=== PATIENT | female | born 1980 | race African-American/Black ===

== ENCOUNTER 2017-12-22 13:45 | Inpatient (IN) | payer SELFPAY ==
[~2017-12-22] VITALS: Ht 167.6 cm; Wt 95.6 kg
[2017-12-22 13:30] VITALS: BP 154/68; PULSE 80; RESP 18; TEMP 98.1; O2SAT 98
[2017-12-22] MEDS ORDERED: SODIUM CHLOR 0.9% 1000 ML INJ 1,000 ML IV SCH (14:14)
[2017-12-22] MEDS ORDERED: NALOXONE HCL 0.4 MG/ML AMP IV PUSH PRN (14:15)
[2017-12-22] MEDS ORDERED: MORPHINE SULFATE 2 MG/ML INJ IM PRN (14:15)
[2017-12-22] MEDS ORDERED: MAGNESIUM HYDROXIDE SUSP 30 ML CUP PO PRN (14:15)
[2017-12-22] MEDS: SODIUM CHLOR 0.9% 1000 ML INJ 1,000 ML IV SCH ×2 (14:15→23:42)
[2017-12-22] MEDS ORDERED: ACETAMINOPHEN 325 MG TAB PO PRN (14:15)
[2017-12-22] MEDS ORDERED: SENNOSIDES 8.6 MG TAB PO PRN (14:15)
[2017-12-22] MEDS ORDERED: LACTULOSE SYRUP 20 GM/30 ML CUP PO PRN (14:15)
[2017-12-22] MEDS ORDERED: ONDANSETRON HCL 4 MG/2 ML VIAL IVP PRN (14:15)
[2017-12-22] MEDS ORDERED: BISACODYL 10 MG SUPP RECTAL PRN (14:15)
--- NOTE | 2017-12-22 14:22 | HHI.HP ---
[facility] No Primary Care Physician Admission Diagnosis Diagnoses: Chief Complaint: Odynophagia Travel History International Travel<30 Days: No Contact w/Intl Traveler <30 Da: No Traveled to Known Affected Are: No Sepsis Criteria SIRS Criteria (2 or more): Heart rate over 90, WBC > 21621, < 4000 or > 10% bands Criteria Outcome: Meets sepsis criteria History of Present Illness The patient is a 37-year-old female the past medical history came here from [facility] for further evaluation of peritonsillar abscess. The patient has pain with swallowing and she says she also developed fevers and chills prior to admission. She was incarcerated last year and says HIV was negative. She is not concerned for HIV infection at this time and does not want to be tested. Patient is a poor historian as well. Denies fever just this time. Received Toradol IV antibiotics and Decadron in the emergency room and she feels much better. Since she will like to eat regular food she does not have any pain at this time. No nausea vomiting no diarrhea or constipation. Febrile tachycardia. She is breathing well, saturating well on room air at this time. Review of Systems ROS Limitations: Clinical Condition, Poor Historian Past Family Social History Past Medical History Denies past medical history Past Surgical History D&C Allergies: Coded Allergies: No Known Allergies (Unverified , 12/22/17) Family History Mother with diabetes and hypertension Social History Tobacco use 1 pack every 2-1/2 days Denies alcohol abuse or illicit drug use Physical Exam Vital Signs Vital Signs Date Time Temp Pulse Resp B/P (MAP) Pulse Ox O2 Delivery O2 Flow Rate FiO2 12/22/17 13:30 98.1 80 18 154/68 (96) 98 Physical Exam GENERAL: This is a pleasant 37-year-old female well-nourished, well-developed patient, in no apparent distress. SKIN: No rashes, ecchymoses or lesions. Cool and dry. HEAD: Atraumatic. Normocephalic. No temporal or scalp tenderness. EYES: Pupils equal round and reactive. Extraocular motions intact. No scleral icterus. No injection or drainage. ENT: Nose without bleeding, purulent drainage or septal hematoma. Throat unable to visualize all this patient is with some discomfort. Airway patent. NECK: Trachea midline. No JVD or lymphadenopathy. Supple, nontender, no meningeal signs. CARDIOVASCULAR: Regular rate and rhythm without murmurs, gallops, or rubs. RESPIRATORY: Clear to auscultation. Breath sounds equal bilaterally. No wheezes , rales, or rhonchi. GASTROINTESTINAL: Abdomen soft, non-tender, nondistended. No hepato-splenomegaly , or palpable masses. No guarding. MUSCULOSKELETAL: Extremities without clubbing, cyanosis, or edema. No joint tenderness, effusion, or edema noted. No calf tenderness. Negative Homans sign bilaterally. NEUROLOGICAL: Awake and alert. Cranial nerves II through XII intact. Motor and sensory grossly within normal limits. Five out of 5 muscle strength in all muscle groups. Normal speech. Caprini VTE Risk Assessment Caprini VTE Risk Assessment: Mod/High Risk (score >= 2) Caprini Risk Assessment Model Point Value = 1 Point Value = 2 Point Value = 3 Point Value = 5 Age 41-60 Minor surgery BMI > 25 kg/m2 Swollen legs Varicose veins or History of unexplained or recurrent spontaneous Oral contraceptives or hormone replacement Sepsis (< 1 month) Serious lung disease, including pneumonia (< 1 month) Abnormal pulmonary function Acute myocardial infarction Congestive heart failure (< 1 month) History of inflammatory bowel disease Medical patient at bed rest Age 61-74 Arthroscopic surgery Major open surgery (> 45 min) Laparoscopic surgery (> 45 min) Malignancy Confined to bed (> 72 hours) Immobilizing plaster cast Central venous access Age >= 75 History of VTE Family history of VTE Factor V Leiden Prothrombin [id number] Lupus anticoagulant Anticardiolipin antibodies Elevated serum homocysteine Heparin-induced thrombocytopenia Other congenital or acquired thrombophilia Stroke (< 1 month) Elective arthroplasty Hip, pelvis, or leg fracture Acute spinal cord injury (< 1 month) Prophylaxis Regimen Total Risk Factor Score Risk Level Prophylaxis Regimen 0-1 Low Early ambulation 2 Moderate Order ONE of the following: *Sequential Compression Device (SCD) *Heparin 5000 units SQ BID 3-4 Higher Order ONE of the following medications: *Heparin 5000 units SQ TID *Enoxaparin/Lovenox 40 mg SQ daily (WT < 150 kg, CrCl > 30 mL/min) *Enoxaparin/Lovenox 30 mg SQ daily (WT < 150 kg, CrCl > 10-29 mL/min) *Enoxaparin/Lovenox 30 mg SQ BID (WT < 150 kg, CrCl > 30 mL/min) AND/OR *Sequential Compression Device (SCD) 5 or more Highest Order ONE of the following medications: *Heparin 5000 units SQ TID (Preferred with Epidurals) *Enoxaparin/Lovenox 40 mg SQ daily (WT < 150 kg, CrCl > 30 mL/min) *Enoxaparin/Lovenox 30 mg SQ daily (WT < 150 kg, CrCl > 10-29 mL/min) *Enoxaparin/Lovenox 30 mg SQ BID (WT < 150 kg, CrCl > 30 mL/min) AND *Sequential Compression Device (SCD) Assessment and Plan Assessment and Plan Severe tonsillitis, right tonsillar abscess. Sepsis meeting criteria white blood cell 14.1, tachycardic heart rate more than 90 on admission source of infection tonsillitis and right tonsillar abscess Bilateral cervical adenopathy Thyromegaly per CT imaging Blood cultures IV fluids IV antibiotic Cleocin IV, Rocephin IV Start Decadron Toradol IV for pain, morphine IV for breakthrough Check TSH Consult ENT Dr. Freire Monitor CBC, kidney function Clear liquid diet for today, n.p.o. after midnight will be reevaluated by Dr. Freire ENT tomorrow for possible intervention DVT prophylaxis SCDs/teds/Lovenox Discussed Condition With Patient, nurse, Dr. Finnegan, Dr. Freire ENT doctor Physician Certification 2 Midnight Certification Type: Admission for Inpatient Services Order for Inpatient Services The services are ordered in accordance with Medicare regulations or non- Medicare payer requirements, as applicable. In the case of services not specified as inpatient-only, they are appropriately provided as inpatient services in accordance with the 2-midnight benchmark. Estimated LOS (days): 3 days is the estimated time the patient will need to remain in the hospital, assuming treatment plan goals are met and no additional complications. Post-Hospital Plan: Home Courtney Hernández MD Dec 22, 2017 14:22
[2017-12-22] MEDS: ENOXAPARIN SODIUM 40 MG/0.4 ML SYRINGE SQ SCH (15:51)
[2017-12-22] MEDS: CLINDAMYCIN INJ 900 MG in SODIUM CHLORIDE 0.9% INJ 100 ML IV SCH ×2 (15:51→21:59)
[2017-12-22 16:00] VITALS: BP 143/67; PULSE 76; RESP 18; TEMP 97.8; O2SAT 98
[2017-12-22 16:42] LABS: AUTOMATED NEUTROPHIL # 12.7 TH/MM3 (1.8-7.7); HEMOGLOBIN 12.1 GM/DL (11.6-15.3); LYMPH % 8.1 % (9.0-44.0); LYMPHOCYTE # 1.1 TH/MM3 (1.0-4.8); MEAN CELL VOLUME 71.5 FL (80.0-100.0); MEAN CORPUSCULAR HGB CONC 33.5 % (32.0-36.0); MEAN PLATELET VOLUME 8.6 FL (7.0-11.0); MONO % 1.2 % (0.0-8.0); MONOCYTE # 0.2 TH/MM3 (0-0.9); NEUT % 90.7 % (16.0-70.0); PLATELET COUNT 257 TH/MM3 (150-450); RED BLOOD COUNT 5.04 MIL/MM3 (4.00-5.30); RED CELL DISTRIBUTION WIDTH 14.7 % (11.6-17.2)
[2017-12-22 17:11] LABS: BICARBONATE 23.9 MEQ/L (21.0-32.0); CALCIUM 8.8 MG/DL (8.5-10.1); CREATININE 0.36 MG/DL (0.50-1.00)
[2017-12-22] MEDS ORDERED: DEXAMETHASONE SOD PHOS 4 MG/ML VIAL IV PUSH SCH (18:00)
[2017-12-22] MEDS: DEXAMETHASONE SOD PHOS 20 MG/5 ML VIAL IV PUSH SCH ×2 (18:27→23:41)
[2017-12-22] MEDS: KETOROLAC TROMETHAMINE 60 MG/2 ML (IM) VIAL IM SCH ×2 (18:28→23:40)
[2017-12-22 20:42] VITALS: BP 141/64; PULSE 74; RESP 16; TEMP 98.4; O2SAT 97
[2017-12-22] MEDS: SODIUM CHLORIDE 0.9% FLUSH 10 ML FLUSH IV FLUSH SCH (21:00)
[2017-12-22] MEDS: DOCUSATE SODIUM 50 MG/SENNA 8.6 MG TAB PO SCH (21:07)
[2017-12-22] MEDS: SODIUM CHLORIDE 0.9% FLUSH 10 ML FLUSH IV FLUSH PRN (23:42)
[2017-12-23] VITALS (11 sets, daily range): BP systolic 143–162; BP diastolic 66–92; PULSE 60–80; RESP 18–20; TEMP 97.8–98.7; O2SAT 18–100
[2017-12-23] MEDS: CLINDAMYCIN INJ 900 MG in SODIUM CHLORIDE 0.9% INJ 100 ML IV SCH ×4 (05:08→21:39)
[2017-12-23] MEDS: SODIUM CHLORIDE 0.9% FLUSH 10 ML FLUSH IV FLUSH PRN (05:17)
[2017-12-23] MEDS: DEXAMETHASONE SOD PHOS 20 MG/5 ML VIAL IV PUSH SCH ×3 (05:17→17:35)
[2017-12-23] MEDS: KETOROLAC TROMETHAMINE 60 MG/2 ML (IM) VIAL IM SCH (05:22)
[2017-12-23] MEDS: DOCUSATE SODIUM 50 MG/SENNA 8.6 MG TAB PO SCH ×2 (08:44→21:00)
[2017-12-23] MEDS: SODIUM CHLORIDE 0.9% FLUSH 10 ML FLUSH IV FLUSH SCH ×2 (08:48→21:00)
[2017-12-23 09:19] LABS: AUTOMATED NEUTROPHIL # 11.1 TH/MM3 (1.8-7.7); BASOPHIL % 0.1 % (0.0-2.0); HEMATOCRIT 35.8 % (35.0-46.0); HEMOGLOBIN 11.6 GM/DL (11.6-15.3); LYMPHOCYTE # 1.6 TH/MM3 (1.0-4.8); MEAN CELL VOLUME 72.4 FL (80.0-100.0); MEAN CORPUSCULAR HEMOGLOBIN 23.4 PG (27.0-34.0); MEAN CORPUSCULAR HGB CONC 32.3 % (32.0-36.0); MEAN PLATELET VOLUME 8.8 FL (7.0-11.0); MONOCYTE # 0.4 TH/MM3 (0-0.9); NEUT % 84.9 % (16.0-70.0); PLATELET COUNT 247 TH/MM3 (150-450); RED BLOOD COUNT 4.94 MIL/MM3 (4.00-5.30); RED CELL DISTRIBUTION WIDTH 14.9 % (11.6-17.2)
[2017-12-23 09:38] LABS: BICARBONATE 23.8 MEQ/L (21.0-32.0); CREATININE 0.35 MG/DL (0.50-1.00)
[2017-12-23] MEDS ORDERED: ACETAMINOPHEN 325 MG TAB PO PRN (12:30)
--- NOTE | 2017-12-23 13:13 | MB ---
cc: Rufus Freire MD DATE OF CONSULT: CHIEF COMPLAINT: Peritonsillar abscess. HISTORY: Patient is a pleasant female with a recent history of right peritonsillar abscess. She notes that a year ago, she had a similar infection. It has significantly improved over the last 24 hours since she was transferred to our hospital yesterday afternoon. She is on clindamycin and steroids. She is tolerating p.o. currently. On examination, patient has mild cervical lymphadenopathy. She has very swollen tonsils, right worse than left, with erythema and exudate. She also has right peritonsillar fullness. She notes that this is better than it was yesterday of note. Flexible fiberoptic laryngoscopy revealed a patent airway, but it was slightly narrowed with the swollen tonsils and soft tissue. Thus, ASSESSMENT: Peritonsillar abscess, resolving. Because of the extent of the infection currently that I note today on evaluation, patient would benefit for at least another 24 hours of IV antibiotics with steroids. I recommend patient stay until tomorrow evening prior to discharge to continue antibiotics with steroids and to go home on oral antibiotic of clindamycin since that is what she is on right now for 2 full weeks. Without 2 full weeks of clindamycin upon discharge, she will have increased risk of a possibly bounce back for repeat visit. Patient can follow up with ear, nose and throat as needed. Rufus Freire MD PCC/LK , 12:46 PM , 01:11 PM [facility]
[2017-12-23] MEDS: SODIUM CHLOR 0.9% 1000 ML INJ 1,000 ML IV SCH (15:24)
[2017-12-23] MEDS: ENOXAPARIN SODIUM 40 MG/0.4 ML SYRINGE SQ SCH (16:00)
--- NOTE | 2017-12-23 17:37 | HHI.PR ---
Subjective Remarks Was seen earlier today. Patient is in bed she appears to not acute distress. Says she wants to eat and she does not have any pain in her throat at this time. No fever or chills overnight. Was seen by ENT Dr. Freire he recommends keeping the patient 1 more day for IV antibiotics can be discharged tomorrow if improved. She also can eat regular food. If she tolerates Objective Vitals Vital Signs Date Time Temp Pulse Resp B/P (MAP) Pulse Ox O2 Delivery O2 Flow Rate FiO2 12/23/17 12:02 98.2 76 18 160/68 (98) 99 12/23/17 08:02 98.3 74 18 162/70 (100) 99 12/23/17 08:00 71 12/23/17 04:00 97.8 78 20 153/92 (112) 97 12/23/17 03:52 67 12/23/17 02:20 60 12/23/17 00:00 97.8 71 20 149/70 (96) 100 12/22/17 20:42 98.4 74 16 141/64 (89) 97 I/O 12/22/17 12/22/17 12/22/17 12/23/17 12/23/17 12/23/17 07:00 15:00 23:00 07:00 15:00 23:00 Intake Total 1052 ml 0 ml 106 ml Balance 1052 ml 0 ml 106 ml Intake Oral 0 ml IV Total 1052 ml 106 ml # Voids 2 Result Diagram: 12/23/17 0640 12/23/17 0640 Objective Remarks GENERAL: This is a pleasant 37-year-old female well-nourished, well-developed patient, in no apparent distress. NECK: Trachea midline. No JVD or lymphadenopathy. Supple, nontender, no meningeal signs. CARDIOVASCULAR: Regular rate and rhythm without murmurs, gallops, or rubs. RESPIRATORY: Clear to auscultation. Breath sounds equal bilaterally. No wheezes , rales, or rhonchi. GASTROINTESTINAL: Abdomen soft, non-tender, nondistended. No hepato-splenomegaly , or palpable masses. No guarding. MUSCULOSKELETAL: Extremities without clubbing, cyanosis, or edema. No joint tenderness, effusion, or edema noted. No calf tenderness. Negative Homans sign bilaterally. NEUROLOGICAL: Awake and alert. Cranial nerves II through XII intact. Motor and sensory grossly within normal limits. Five out of 5 muscle strength in all muscle groups. Normal speech. A/P Assessment and Plan Severe tonsillitis, right tonsillar abscess. Sepsis meeting criteria white blood cell 14.1, tachycardic heart rate more than 90 on admission source of infection tonsillitis and right tonsillar abscess Bilateral cervical adenopathy Thyromegaly per CT imaging Blood cultures IV fluids IV antibiotic Cleocin IV, Rocephin IV Start Decadron Toradol IV for pain, morphine IV for breakthrough Check TSH Consult ENT Dr. Freire Monitor CBC, kidney function Was seen by ENT Dr. Freire he recommends keeping the patient 1 more day for IV antibiotics can be discharged tomorrow if improved. She also can eat regular food. DVT prophylaxis SCDs/teds/Lovenox Discussed Condition With Patient, nurse DC plan: poss DC tomorrow Was seen by ENT Dr. Freire he recommends keeping the patient 1 more day for IV antibiotics can be discharged tomorrow if improved. Courtney Hernández MD Dec 23, 2017 17:37
[2017-12-23] MEDS: KETOROLAC TROMETHAMINE 30 MG/ML (IVP) VIAL IV PUSH PRN (21:40)
[2017-12-24] VITALS (9 sets, daily range): BP systolic 155–163; BP diastolic 58–87; PULSE 51–82; RESP 17–18; TEMP 97–97.9; O2SAT 97–100
[2017-12-24] MEDS: CLINDAMYCIN INJ 900 MG in SODIUM CHLORIDE 0.9% INJ 100 ML IV SCH ×3 (03:54→16:21)
[2017-12-24] MEDS: KETOROLAC TROMETHAMINE 30 MG/ML (IVP) VIAL IV PUSH PRN (03:54)
[2017-12-24] MEDS: DEXAMETHASONE SOD PHOS 20 MG/5 ML VIAL IV PUSH SCH ×3 (06:10→12:41)
[2017-12-24] MEDS: SODIUM CHLOR 0.9% 1000 ML INJ 1,000 ML IV SCH ×2 (06:10→13:55)
[2017-12-24 07:16] LABS: BICARBONATE 22.2 MEQ/L (21.0-32.0); CALCIUM 9.1 MG/DL (8.5-10.1); CREATININE 0.37 MG/DL (0.50-1.00)
[2017-12-24 07:27] LABS: AUTOMATED NEUTROPHIL # 12.9 TH/MM3 (1.8-7.7); BASOPHIL % 0.1 % (0.0-2.0); HEMATOCRIT 34.3 % (35.0-46.0); HEMOGLOBIN 11.4 GM/DL (11.6-15.3); LYMPH % 12.4 % (9.0-44.0); LYMPHOCYTE # 1.9 TH/MM3 (1.0-4.8); MEAN CELL VOLUME 71.8 FL (80.0-100.0); MEAN CORPUSCULAR HEMOGLOBIN 23.9 PG (27.0-34.0); MEAN CORPUSCULAR HGB CONC 33.3 % (32.0-36.0); MEAN PLATELET VOLUME 8.9 FL (7.0-11.0); MONO % 3.2 % (0.0-8.0); MONOCYTE # 0.5 TH/MM3 (0-0.9); NEUT % 84.3 % (16.0-70.0); PLATELET COUNT 247 TH/MM3 (150-450); RED BLOOD COUNT 4.78 MIL/MM3 (4.00-5.30); RED CELL DISTRIBUTION WIDTH 14.8 % (11.6-17.2); WHITE BLOOD COUNT 15.2 TH/MM3 (4.0-11.0)
[2017-12-24] MEDS: DOCUSATE SODIUM 50 MG/SENNA 8.6 MG TAB PO SCH (09:00)
[2017-12-24] MEDS: SODIUM CHLORIDE 0.9% FLUSH 10 ML FLUSH IV FLUSH SCH (09:13)
[2017-12-24] MEDS ORDERED: CLIN300C5 PO (11:18)
[2017-12-24] MEDS ORDERED: PRED20 PO (11:18)
--- NOTE | 2017-12-24 13:46 | HHI.PR ---
Subjective Remarks Pt feeling a lot better. Able to eat. No trouble breathing. Pain well controlled. would like to go home today Objective Vitals Vital Signs Date Time Temp Pulse Resp B/P (MAP) Pulse Ox O2 Delivery O2 Flow Rate FiO2 12/24/17 12:00 97.9 67 18 155/77 (103) 100 12/24/17 08:07 51 12/24/17 08:00 Room Air 12/24/17 08:00 97.8 65 17 157/87 (110) 100 12/24/17 04:00 Room Air 12/24/17 04:00 97.8 53 18 157/74 (101) 99 12/24/17 04:00 53 12/24/17 00:00 Room Air 12/24/17 00:00 97.0 58 18 163/77 (105) 97 12/24/17 00:00 82 12/23/17 20:33 Room Air 12/23/17 20:33 98.7 68 148/70 (96) 96 12/23/17 20:00 67 12/23/17 16:02 98.1 80 18 143/66 (91) 18 12/23/17 16:00 70 I/O 12/23/17 12/23/17 12/23/17 12/24/17 12/24/17 12/24/17 07:00 15:00 23:00 07:00 15:00 23:00 Intake Total 0 ml 106 ml 2356 ml 1944 ml 106 ml Balance 0 ml 106 ml 2356 ml 1944 ml 106 ml Intake Oral 0 ml 280 ml 990 ml IV Total 106 ml 2076 ml 954 ml 106 ml # Voids 2 4 3 # Bowel Movements 1 1 Result Diagram: 12/24/17 0540 12/24/17 0540 Objective Remarks GENERAL: AA walking in her room NECK: Trachea midline. CARDIOVASCULAR: Regular rate and rhythm without murmurs, RESPIRATORY: Clear to auscultation. Breath sounds equal bilaterally. No wheezes GASTROINTESTINAL: Abdomen soft, non-tender, nondistended. MUSCULOSKELETAL: Extremities without edema. NEUROLOGICAL: Awake and alert. Motor and sensory grossly within normal limits. A/P Assessment and Plan Severe tonsillitis, right tonsillar abscess. Sepsis meeting criteria white blood cell 14.1, tachycardic heart rate more than 90 on admission source of infection tonsillitis and right tonsillar abscess Bilateral cervical adenopathy Thyromegaly per CT imaging Blood cultures neg x 2 days Pt feeling a lot better. Will complete 48 hours of IV clinda and ok to d/c this evening after dose of clindamycin. I have placed script for clinda po for a total of 14 days per ENT recs. Pt to also get script for prednisone taper as well. script for tramadol as prn f/u w ENT Dr. Freire as needed Pt tolerated a diet. she feels comfortable w plan d/c home today f/u w PCP in 1-2 weeks and ENT as needed condition stable Discharge Planning d/c today after dose of clindamycin IV Zhanna Christy MD Dec 24, 2017 13:46
[2017-12-24] MEDS ORDERED: TRAM50TA PO (14:17)
[2017-12-24] MEDS: ENOXAPARIN SODIUM 40 MG/0.4 ML SYRINGE SQ SCH (16:21)
[2017-12-24] MEDS ORDERED: AMLO5TAB2 PO (16:39)
[2017-12-24] MEDS ORDERED: amLODIPine BESYLATE 5 MG TAB PO ONE (16:45)
[2017-12-25] MEDS ORDERED: amLODIPine BESYLATE 5 MG TAB PO SCH (09:00)
== END 2017-12-24 18:09 | disposition home or self-care (01) | DRG 872 ==
LOC: N04B 13:45 → OBSVTOIN 14:27
PROVIDERS: ADMIT Hospitalist; ATTEND Hospitalist
DX: A41.9 Sepsis, unspecified organism (principal); J36 Peritonsillar abscess; R59.0 Localized enlarged lymph nodes; Z72.0 Tobacco use
CPT/HCPCS: 80048; 83605; 84443; 85025; 87040; J1100; J1650; J1885; J7030

== ENCOUNTER 2018-02-06 20:37 | Inpatient (IN) | payer OTHER ==
[~2018-02-06] VITALS: Ht 170.2 cm; Wt 76.9 kg
[~2018-02-06 20:37] MED LIST: AMLO5TAB2 PO; CLIN300C5 PO; PRED20 PO; TRAM50TA PO
[2018-02-06] MEDS ORDERED: CHLORHEXIDINE GLUCONATE 2 % 1 PACK (2 CLOTHS) TOP PRN (23:45)
[2018-02-06] MEDS ORDERED: MAGNESIUM HYDROXIDE SUSP 30 ML CUP PO PRN (23:45)
[2018-02-06] MEDS ORDERED: SENNOSIDES 8.6 MG TAB PO PRN (23:45)
[2018-02-06] MEDS ORDERED: MISCELLANEOUS NURSING INFORMATION XX SCH (23:45)
[2018-02-06] MEDS ORDERED: RESP: ALBUTEROL 2.5 MG/IPRATROPIUM 0.5 MG NEB (PRN) INH (23:45)
[2018-02-06] MEDS ORDERED: LABETALOL HCL 100 MG/20 ML VIAL IV PUSH PRN (23:45)
[2018-02-06] MEDS ORDERED: SODIUM CHLORIDE 0.9% FLUSH 10 ML FLUSH IV FLUSH PRN (23:45)
[2018-02-06] MEDS ORDERED: BISACODYL 10 MG SUPP RECTAL PRN (23:45)
[2018-02-06] MEDS ORDERED: ONDANSETRON HCL 4 MG/2 ML VIAL IV PUSH PRN (23:45)
--- NOTE | 2018-02-06 23:57 | HHI.HP ---
HPI Service Critical Care Medicine Primary Care Physician Unknown Admission Diagnosis Diagnosis: Chief Complaint: Left-sided throat pain with difficulty swallowing Travel History International Travel<30 Days: No Contact w/Intl Traveler <30 Da: No History of Present Illness History of Present Illness 37-year-old female who was recently admitted on 12/22/2017 for left peritonsillar abscess and discharged on 12/27 after being evaluated by ENT. Reportedly patient did not wish to have surgery at that time. She was discharged on steroids and clindamycin. She presented back to [facility] today with increasing pain on the left side of her throat with nausea vomiting along with chills which she noticed this morning. She has also been having trouble with her swallowing. Patient underwent CT of the neck which showed a left sided peritonsillar abscess measuring 1.5 x 1.5 x 1.7 cm with tonsillar hypertrophy consistent with tonsillitis/pharyngitis. Patient was accepted by Dr. Rubio for further evaluation by ENT and transferred to [facility] where I evaluated her immediately following her arrival. Patient was resting in bed comfortably not in any acute distress at the time of my evaluation. She did not have any stridor or difficulty with her breathing at the time. She denied any shortness of breath. She has been on room air since her arrival at [facility]. She did receive IV Decadron and clindamycin at [facility] prior to being transferred to [facility]. Labs done at [facility] included white count 17.2, hemoglobin 11.6, hematocrit 37, platelets 229. Sodium 144, potassium 3.7, chloride 107, bicarb 23, BUN 13, creatinine less than 0.17, glucose 93. Review of Systems As per HPI, otherwise negative Past Family Social History Past Medical History Denies past medical history Past Surgical History D&C Allergies: Coded Allergies: No Known Allergies (Unverified , 12/22/17) Medications at home: Clindamycin, prednisone, amlodipine Family History Mother with diabetes and hypertension Social History Tobacco use 1 pack every 2-1/2 days Denies alcohol abuse or illicit drug use Physical Exam Physical Exam HEENT/Neuro: No pallor or icterus, tongue moist without any swelling, minimal swelling noted in left tonsillar region with erythema. [place], Awake alert oriented 3, nonfocal grossly, moving all 4 extremities Neck: No JVD, tenderness on left side of neck on palpation Chest/pulmonary: CTA bilaterally. No wheezing or stridor noted. Cardiovascular: S1-S2 regular no gallop or murmur GI/abdomen: Soft, nontender, bowel sounds present Extremities: Warm bilaterally, no edema Laboratory Laboratory Tests Test 02/06/18 23:15 Septic Shock Reassessment Septic shock perfusion: reassessment completed Caprini VTE Risk Assessment Caprini VTE Risk Assessment: No/Low Risk (score <= 1) Caprini Risk Assessment Model Point Value = 1 Point Value = 2 Point Value = 3 Point Value = 5 Age 41-60 Minor surgery BMI > 25 kg/m2 Swollen legs Varicose veins or History of unexplained or recurrent spontaneous Oral contraceptives or hormone replacement Sepsis (< 1 month) Serious lung disease, including pneumonia (< 1 month) Abnormal pulmonary function Acute myocardial infarction Congestive heart failure (< 1 month) History of inflammatory bowel disease Medical patient at bed rest Age 61-74 Arthroscopic surgery Major open surgery (> 45 min) Laparoscopic surgery (> 45 min) Malignancy Confined to bed (> 72 hours) Immobilizing plaster cast Central venous access Age >= 75 History of VTE Family history of VTE Factor V Leiden Prothrombin [id number] Lupus anticoagulant Anticardiolipin antibodies Elevated serum homocysteine Heparin-induced thrombocytopenia Other congenital or acquired thrombophilia Stroke (< 1 month) Elective arthroplasty Hip, pelvis, or leg fracture Acute spinal cord injury (< 1 month) Prophylaxis Regimen Total Risk Factor Score Risk Level Prophylaxis Regimen 0-1 Low Early ambulation 2 Moderate Order ONE of the following: *Sequential Compression Device (SCD) *Heparin 5000 units SQ BID 3-4 Higher Order ONE of the following medications: *Heparin 5000 units SQ TID *Enoxaparin/Lovenox 40 mg SQ daily (WT < 150 kg, CrCl > 30 mL/min) *Enoxaparin/Lovenox 30 mg SQ daily (WT < 150 kg, CrCl > 10-29 mL/min) *Enoxaparin/Lovenox 30 mg SQ BID (WT < 150 kg, CrCl > 30 mL/min) AND/OR *Sequential Compression Device (SCD) 5 or more Highest Order ONE of the following medications: *Heparin 5000 units SQ TID (Preferred with Epidurals) *Enoxaparin/Lovenox 40 mg SQ daily (WT < 150 kg, CrCl > 30 mL/min) *Enoxaparin/Lovenox 30 mg SQ daily (WT < 150 kg, CrCl > 10-29 mL/min) *Enoxaparin/Lovenox 30 mg SQ BID (WT < 150 kg, CrCl > 30 mL/min) AND *Sequential Compression Device (SCD) Assessment and Plan Assessment and Plan 37-year-old female with: Left peritonsillar abscess Odynophagia Hypertension Plan: Patient admitted to ICU. Appears to be protecting airway well currently. IV clindamycin and Decadron to be continued. ENT consult requested to evaluate for drainage for peritonsillar abscess. Morphine as needed for pain. N.p.o. for now until ENT evaluation. Pepcid for GI prophylaxis SCDs. Hold Lovenox as patient may require surgery for peritonsillar abscess. We will consult and transfer to hospitalist service for further medical management. Critical care will be available if needed. Claudio Quiroz MD Feb 06, 2018 23:57
[2018-02-07] VITALS (20 sets, daily range): BP systolic 117–145; BP diastolic 56–99; PULSE 72–89; RESP 13–36; TEMP 98–99; O2SAT 96–100
[2018-02-07] MEDS ORDERED: CLINDAMYCIN 600 MG/NS PREMIX 50 ML IV SCH
[2018-02-07] MEDS: D5-1/2 NS + KCL 20 MEQ INJ 1,000 ML IV SCH ×3 (00:30→17:39)
[2018-02-07] MEDS: FAMOTIDINE 20 MG/2 ML VIAL IV PUSH SCH ×3 (00:31→23:24)
[2018-02-07] MEDS: DEXAMETHASONE SOD PHOS 4 MG/ML VIAL IV PUSH SCH ×5 (00:31→23:24)
[2018-02-07] MEDS: MORPHINE SULFATE 4 MG/ML INJ IV PUSH PRN ×2 (00:32→18:00)
[2018-02-07] MEDS: CLINDAMYCIN INJ 600 MG in SODIUM CHLORIDE 0.9% INJ 100 ML IV SCH ×5 (01:05→23:24)
[2018-02-07] MEDS: CHLORHEXIDINE GLUCONATE 2 % 1 PACK (2 CLOTHS) TOP SCH (04:00)
[2018-02-07 04:26] LABS: AUTOMATED NEUTROPHIL # 15.2 TH/MM3 (1.8-7.7); HEMATOCRIT 35.5 % (35.0-46.0); HEMOGLOBIN 11.3 GM/DL (11.6-15.3); LYMPH % 5.7 % (9.0-44.0); LYMPHOCYTE # 0.9 TH/MM3 (1.0-4.8); MEAN CELL VOLUME 72.5 FL (80.0-100.0); MEAN CORPUSCULAR HGB CONC 31.8 % (32.0-36.0); MEAN PLATELET VOLUME 9.2 FL (7.0-11.0); MONO % 0.5 % (0.0-8.0); MONOCYTE # 0.1 TH/MM3 (0-0.9); NEUT % 93.8 % (16.0-70.0); PLATELET COUNT 247 TH/MM3 (150-450); RED BLOOD COUNT 4.89 MIL/MM3 (4.00-5.30); RED CELL DISTRIBUTION WIDTH 15.4 % (11.6-17.2); WHITE BLOOD COUNT 16.3 TH/MM3 (4.0-11.0)
[2018-02-07 04:39] LABS: ALBUMIN 2.9 GM/DL (3.4-5.0); AST (GOT) 15 U/L (15-37); BICARBONATE 24.5 MEQ/L (21.0-32.0); BLOOD UREA NITROGEN 11 MG/DL (7-18); CHLORIDE 110 MEQ/L (98-107); GLOMERULAR FILTRATION RATE 478 ML/MIN (>89); GLUCOSE,RANDOM 135 MG/DL (74-106); SODIUM (NA) 142 MEQ/L (136-145)
[2018-02-07 04:42] LABS: ALKALINE PHOSPHATASE 178 U/L (45-117); ALT (GPT) 20 U/L (10-53); TOTAL BILIRUBIN ADULT 2.3 MG/DL (0.2-1.0); TOTAL PROTEIN 7.7 GM/DL (6.4-8.2)
--- NOTE | 2018-02-07 09:35 | PD.PN.STU ---
Subjective Remarks This patient is a 37 y/o female with a hx of hypertension and peritonsillar abscess (december 2016) who was transferred from [facility] for a peritonsillar abscess. She said she had the same thing 1 year ago on the right and was treated with steroids and antibiotics and it went away. Once month ago she had one on the right side and was admitted here for 3 days where she received IV steroids and antibiotics. She was sent on home on antibiotics but stopped taking them early because she "felt better". She said 4 days ago she began to feel a lump in her throat and trouble talking again but this time it is on the left. She says she had pain on the left side of her throat that radiated into her jaw. She feels a scratchiness in her throat and was having trouble eating. This morning she reports no pain and a strong appetite. She feels like she can eat this morning. She has had a bowel movement since she has been here. She denies fever, chills, abdominal pain, chest pain, shortness of breath, nausea, vomiting, body aches, or headaches. Objective Vitals Vital Signs Date Time Temp Pulse Resp B/P (MAP) Pulse Ox O2 Delivery O2 Flow Rate FiO2 02/07/18 06:00 72 28 133/59 (83) 99 02/07/18 06:00 72 02/07/18 05:00 78 25 129/60 (83) 100 02/07/18 04:00 98.1 76 16 125/58 (80) 100 02/07/18 04:00 76 02/07/18 03:00 77 25 117/57 (77) 99 02/07/18 02:00 85 36 135/62 (86) 96 02/07/18 02:00 85 02/07/18 01:00 83 27 129/58 (81) 98 02/07/18 00:00 86 02/07/18 00:00 99.0 86 28 134/61 (85) 98 I/O 02/06/18 02/06/18 02/06/18 02/07/18 02/07/18 02/07/18 07:00 15:00 23:00 07:00 15:00 23:00 Intake Total 208 ml Balance 208 ml Intake IV Total 208 ml # Voids 3 Result Diagram: 02/07/18 0345 02/07/18 0345 Other Results Laboratory Tests Test 02/06/18 23:15 02/07/18 03:45 Nasal Screen MRSA (PCR) MRSA NOT DETECTED White Blood Count 16.3 TH/MM3 Red Blood Count 4.89 MIL/MM3 Hemoglobin 11.3 GM/DL Hematocrit 35.5 % Mean Corpuscular Volume 72.5 FL Mean Corpuscular Hemoglobin 23.0 PG Mean Corpuscular Hemoglobin Concent 31.8 % Red Cell Distribution Width 15.4 % Platelet Count 247 TH/MM3 Mean Platelet Volume 9.2 FL Neutrophils (%) (Auto) 93.8 % Lymphocytes (%) (Auto) 5.7 % Monocytes (%) (Auto) 0.5 % Eosinophils (%) (Auto) 0.0 % Basophils (%) (Auto) 0.0 % Neutrophils # (Auto) 15.2 TH/MM3 Lymphocytes # (Auto) 0.9 TH/MM3 Monocytes # (Auto) 0.1 TH/MM3 Eosinophils # (Auto) 0.0 TH/MM3 Basophils # (Auto) 0.0 TH/MM3 CBC Comment DIFF FINAL Differential Comment Blood Urea Nitrogen 11 MG/DL Creatinine 0.20 MG/DL Random Glucose 135 MG/DL Total Protein 7.7 GM/DL Albumin 2.9 GM/DL Calcium Level 9.0 MG/DL Alkaline Phosphatase 178 U/L Aspartate Amino Transf (AST/SGOT) 15 U/L Alanine Aminotransferase (ALT/SGPT) 20 U/L Total Bilirubin 2.3 MG/DL Sodium Level 142 MEQ/L Potassium Level 4.1 MEQ/L Chloride Level 110 MEQ/L Carbon Dioxide Level 24.5 MEQ/L Anion Gap 8 MEQ/L Estimat Glomerular Filtration Rate 478 ML/MIN Objective Remarks General: A WDWN female in no acute distress HEENT: no icterus or injection of the eyes, oral mucosa is pink and moist, the left tonsil has grape sized cyst with white purulent drainage, the left jaw and neck is swollen, mild erythema on the posterior pharyngeal wall, no cervical lymphadenopathy, jaw is non tender to palpation. The patients voice is muffled. Cardio: Regular rate and rhythm no murmur, gallop, or rubs heard, Lungs: clear to auscultation B/L Extremities: no edema Past Medical History Arthritis: No Asthma: No Autoimmune Disease: No Heart Rhythm Problems: No Cancer: No Cardiovascular Problems: No High Cholesterol: No Chemotherapy: No Chest Pain: No Congestive Heart Failure: No COPD: No Cerebrovascular Accident: No Diabetes: No Endocrine: No GERD: No Genitourinary: No Hiatal Hernia: No Immune Disorder: No Kidney Stones: No Musculoskeletal: Yes Neurologic: No Psychiatric: No Reproductive: Yes Respiratory: No Migraines: No Radiation Therapy: No Renal Failure: No Seizures: No Sickle Cell Disease: No Sleep Apnea: No Thyroid Disease: No Ulcer: No Past Surgical History Abdominal Surgery: No AICD: No Arteriovenous Shunt: No Cardiac Surgery: No Ear Surgery: No Endocrine Surgery: No Eye Surgery: No Genitourinary Surgery: No Gynecologic Surgery: Yes (D&C) Insulin Pump: No Joint Replacement: No Oral Surgery: No Pacemaker: No Thoracic Surgery: No Social History Substance Use: No A/P Assessment and Plan This is a 37 y/o female with a hx of hypertension and 2 prior peritonsillar abscess who presents with a swelling and pain in her throat on the left side. Based on history and physical exam, she likely has another peritonsillar abscess. She did not finish her course of antibiotics after she left the hospital last month. Previous notes from hat visit mention she was recently incarcerated and she reports that she has tested negative for HIV. 1. Peritonsillar abscess -IV clindamycin to cover strep, staph, and anaerobes -IV Dexamethasone to decrease swelling and inflammation -2mg IV morphine Q4 hours for pain scale 4-6 -progress diet as tolerated -ENT has been consulted -consider culture of the drainage 2.Hypertension -IV labetalol 10 mg PRN for systolic > 160 Huey Veras M3 Feb 07, 2018 09:35
--- NOTE | 2018-02-07 11:32 | PD.CONS ---
History of Present Illness Service ENT Consult Requested By [facility] Reason for Consult Left peritonsillar abscess Primary Care Physician Unknown Diagnoses: History of Present Illness 37 year old female previous right tonsil abscess last year and left tonsil abscess this past december presents with left peritonsillar abscess. Patient is from [place] and was transferred to [facility]. She has received Decadron and Clindamycin with decreased edema, improved clinical exam and decreased WBC. Review of Systems Ears, nose, mouth, throat: COMPLAINS OF: Throat pain, Odynophagia, DENIES: Nasal discharge, Oral lesions, Ear Pain Past Family Social History Allergies: Coded Allergies: No Known Allergies (Unverified , 12/22/17) Past Surgical History Previous left and right tonsillar abscess. Physical Exam Vital Signs Vital Signs Date Time Temp Pulse Resp B/P (MAP) Pulse Ox O2 Delivery O2 Flow Rate FiO2 02/07/18 11:00 75 13 120/58 (78) 98 02/07/18 11:00 75 02/07/18 10:00 79 29 118/56 (76) 99 02/07/18 10:00 79 02/07/18 09:00 83 35 135/63 (87) 97 02/07/18 09:00 83 02/07/18 08:00 84 30 121/58 (79) 100 02/07/18 08:00 84 02/07/18 07:00 75 02/07/18 07:00 75 25 134/62 (86) 99 02/07/18 06:00 72 28 133/59 (83) 99 02/07/18 06:00 72 02/07/18 05:00 78 25 129/60 (83) 100 02/07/18 04:00 98.1 76 16 125/58 (80) 100 02/07/18 04:00 76 02/07/18 03:00 77 25 117/57 (77) 99 02/07/18 02:00 85 36 135/62 (86) 96 02/07/18 02:00 85 02/07/18 01:00 83 27 129/58 (81) 98 02/07/18 00:00 86 02/07/18 00:00 99.0 86 28 134/61 (85) 98 Physical Exam GENERAL: This is a well-nourished, well-developed patient, in no apparent distress. SKIN: No rashes, ecchymoses or lesions. Cool and dry. HEAD: Atraumatic. Normocephalic. No temporal or scalp tenderness. EYES: Pupils equal round and reactive. Extraocular motions intact. No scleral icterus. No injection or drainage. ENT: Nose without bleeding, purulent drainage or septal hematoma. Throat without erythema, Uvula near midline left tonsillar edema improved. Airway patent. NECK: Trachea midline. Left mild lymphadenopathy. Supple, slightly tender, no meningeal signs. NEUROLOGICAL: Awake and alert. Normal speech. Laboratory Laboratory Tests Test 02/06/18 23:15 02/07/18 03:45 Nasal Screen MRSA (PCR) MRSA NOT DETECTED White Blood Count 16.3 Red Blood Count 4.89 Hemoglobin 11.3 Hematocrit 35.5 Mean Corpuscular Volume 72.5 Mean Corpuscular Hemoglobin 23.0 Mean Corpuscular Hemoglobin Concent 31.8 Red Cell Distribution Width 15.4 Platelet Count 247 Mean Platelet Volume 9.2 Neutrophils (%) (Auto) 93.8 Lymphocytes (%) (Auto) 5.7 Monocytes (%) (Auto) 0.5 Eosinophils (%) (Auto) 0.0 Basophils (%) (Auto) 0.0 Neutrophils # (Auto) 15.2 Lymphocytes # (Auto) 0.9 Monocytes # (Auto) 0.1 Eosinophils # (Auto) 0.0 Basophils # (Auto) 0.0 CBC Comment DIFF FINAL Differential Comment Blood Urea Nitrogen 11 Creatinine 0.20 Random Glucose 135 Total Protein 7.7 Albumin 2.9 Calcium Level 9.0 Alkaline Phosphatase 178 Aspartate Amino Transf (AST/SGOT) 15 Alanine Aminotransferase (ALT/SGPT) 20 Total Bilirubin 2.3 Sodium Level 142 Potassium Level 4.1 Chloride Level 110 Carbon Dioxide Level 24.5 Anion Gap 8 Estimat Glomerular Filtration Rate 478 Result Diagram: 02/07/18 0345 02/07/18 0345 Assessment and Plan Assessment and Plan 37 year old female with peritonsillar abscess. She is responding to medical therapy. It was a small collection on CT at 1.7 cm. OK to feed today. Would continue IV Decadron and Clindamycin another 24 to 48 hours. Patient was not reliable and did not finish her PO meds after last admission. Can discharge on a short steroid taper and Clindamycin 300 mg TID for 1 week. She has a very strong indication for interval tonsillectomy. After the acute situation has settled suggest outpatient local ENT follow up and plan for surgery. She lives in [place] in [facility]. She would be best served seeing an ENT in her area for continuity of care closer to her home. Anastacio Simon MD Feb 07, 2018 11:32
[2018-02-07] MEDS: SODIUM CHLORIDE 0.9% FLUSH 10 ML FLUSH IV FLUSH SCH ×2 (12:29→21:00)
--- NOTE | 2018-02-07 14:07 | HHI.PR ---
Subjective Remarks doing much better today able to sollow , no f/c Objective Vitals Vital Signs Date Time Temp Pulse Resp B/P (MAP) Pulse Ox O2 Delivery O2 Flow Rate FiO2 02/07/18 13:00 80 02/07/18 13:00 80 23 144/60 (88) 02/07/18 12:00 89 02/07/18 12:00 98.0 89 24 145/74 (97) 96 02/07/18 11:00 75 13 120/58 (78) 98 02/07/18 11:00 75 02/07/18 10:00 79 29 118/56 (76) 99 02/07/18 10:00 79 02/07/18 09:00 83 35 135/63 (87) 97 02/07/18 09:00 83 02/07/18 08:00 84 30 121/58 (79) 100 02/07/18 08:00 84 02/07/18 07:00 75 02/07/18 07:00 75 25 134/62 (86) 99 02/07/18 06:00 72 28 133/59 (83) 99 02/07/18 06:00 72 02/07/18 05:00 78 25 129/60 (83) 100 02/07/18 04:00 98.1 76 16 125/58 (80) 100 02/07/18 04:00 76 02/07/18 03:00 77 25 117/57 (77) 99 02/07/18 02:00 85 36 135/62 (86) 96 02/07/18 02:00 85 02/07/18 01:00 83 27 129/58 (81) 98 02/07/18 00:00 86 02/07/18 00:00 99.0 86 28 134/61 (85) 98 I/O 02/06/18 02/06/18 02/06/18 02/07/18 02/07/18 02/07/18 06:59 14:59 22:59 06:59 14:59 22:59 Intake Total 208 ml Balance 208 ml Intake IV Total 208 ml # Voids 3 Result Diagram: 02/07/18 0343 02/07/18 0345 Objective Remarks GENERAL: This is a well-nourished, well-developed patient, in no apparent distress. CARDIOVASCULAR: Regular rate and rhythm without murmurs, gallops, or rubs. RESPIRATORY: Clear to auscultation. Breath sounds equal bilaterally. No wheezes , rales, or rhonchi. GASTROINTESTINAL: Abdomen soft, non-tender, nondistended. Normal active bowel sounds MUSCULOSKELETAL: Extremities without clubbing, cyanosis, or edema. NEURO: Alert & Oriented x4 to person, place, time, situation. Moves all ext x4 A/P Assessment and Plan This is a 37 y/o female with a hx of hypertension and 2 prior peritonsillar abscess who presents with a swelling and pain in her throat on the left side. 1. Peritonsillar abscess -IV clindamycin to cover strep, staph, and anaerobes -IV Dexamethasone to decrease swelling and inflammation -2mg IV morphine Q4 hours for pain scale 4-6 -progress diet as tolerated -ENT consulted , ivf 2.Hypertension >>improved , mostly was due to pain -IV labetalol 10 mg PRN for systolic > 160 Faustino Madera MD Feb 07, 2018 14:07
[2018-02-08] VITALS: BP_SYST 124; BP_SYST 132; BP_DIAS 60; BP_DIAS 81; PULSE 68; PULSE 78; RESP 17; TEMP 98; TEMP 98.1; O2SAT 100
[2018-02-08 04:00] VITALS: BP 140/65; PULSE 69; RESP 18; TEMP 98.2; O2SAT 100
[2018-02-08] MEDS: CHLORHEXIDINE GLUCONATE 2 % 1 PACK (2 CLOTHS) TOP SCH (04:00)
[2018-02-08] MEDS: CLINDAMYCIN INJ 600 MG in SODIUM CHLORIDE 0.9% INJ 100 ML IV SCH ×3 (05:17→17:04)
[2018-02-08] MEDS: DEXAMETHASONE SOD PHOS 4 MG/ML VIAL IV PUSH SCH ×3 (05:17→17:02)
[2018-02-08 08:00] VITALS: BP 147/67; PULSE 70; RESP 27; TEMP 98.1; O2SAT 100
[2018-02-08] MEDS: D5-1/2 NS + KCL 20 MEQ INJ 1,000 ML IV SCH ×2 (09:08→15:32)
[2018-02-08] MEDS: SODIUM CHLORIDE 0.9% FLUSH 10 ML FLUSH IV FLUSH SCH (09:08)
[2018-02-08] MEDS ORDERED: PRED5PAK PO (10:00)
[2018-02-08] MEDS ORDERED: CLIN300C5 PO (10:00)
[2018-02-08] MEDS ORDERED: TRAM50 PO (10:00)
[2018-02-08] MEDS ORDERED: LACTCHW3 CHEW (10:00)
--- NOTE | 2018-02-08 10:48 | PD.PN.STU ---
Subjective Remarks The patient reports that she feels much better. She is able to tolerate food and has eaten a full breakfast. She has very minimal pain, 2/10 and is having no trouble breathing. She denies fevers, chills, abdominal pain, nausea, vomiting, sore throat, cough, or headaches. She has been afebrile overnight. Objective Vitals Vital Signs Date Time Temp Pulse Resp B/P (MAP) Pulse Ox O2 Delivery O2 Flow Rate FiO2 02/08/18 08:00 70 02/08/18 08:00 98.1 70 27 147/67 (93) 100 02/08/18 04:00 69 02/08/18 04:00 98.2 69 18 140/65 (90) 100 02/08/18 00:00 68 02/08/18 00:00 98.0 68 17 132/60 (84) 100 02/07/18 20:00 78 02/07/18 20:00 98.1 78 17 124/81 (95) 100 02/07/18 18:00 81 24 122/60 (80) 02/07/18 18:00 81 02/07/18 17:00 86 02/07/18 17:00 86 28 126/99 (108) 100 02/07/18 16:00 98.3 80 26 134/62 (86) 99 02/07/18 16:00 80 02/07/18 15:00 85 23 136/69 (91) 100 02/07/18 15:00 85 02/07/18 14:00 81 02/07/18 14:00 81 21 126/60 (82) 97 02/07/18 13:00 80 02/07/18 13:00 80 23 144/60 (88) 02/07/18 12:00 89 02/07/18 12:00 98.0 89 24 145/74 (97) 96 02/07/18 11:00 75 13 120/58 (78) 98 02/07/18 11:00 75 I/O 02/07/18 02/07/18 02/07/18 02/08/18 02/08/18 02/08/18 07:00 15:00 23:00 07:00 15:00 23:00 Intake Total 208 ml 2014 ml 448 ml Balance 208 ml 2014 ml 448 ml Intake Oral 360 ml 240 ml IV Total 208 ml 1655 ml 208 ml # Voids 3 4 4 # Bowel Movements 1 0 Result Diagram: 02/07/1834402/07/18 034 Objective Remarks GENERAL: A WDWN female in no acute distress. SKIN: Warm and dry. HEENT: Normocephalic. Supple, trachea midline. No JVD or lymphadenopathy. Left tonsillar hypertrophy, minimal erythema and exudate. Much improvement compared to yesterday. Jaw is less swollen and non tender. Airway is patent. CARDIOVASCULAR: Regular rate and rhythm without murmurs, gallops, or rubs. RESPIRATORY: Breath sounds equal bilaterally. No accessory muscle use. GASTROINTESTINAL: Abdomen soft, non-tender, nondistended. A/P Assessment and Plan This is a 37 y/o female with a hx of hypertension and 2 prior peritonsillar abscess who presents with a third peritonsillar abscess. She has improved on antibiotics and steroids and is now tolerating food. Her pain has decreased to almost nothing and her throat is much less swollen and erythematous. 1. Peritonsillar abscess -ENT recommended 48 hours of IV clindamycin-her last dose is today at 5pm. -Will D/C the patient on PO 300mg Clindamycin TID for 1 week, Steroid taper pack, Ultram, and a probiotic -Patient was instructed to follow up with an ENT at home in [place] when the acute problem resolves. She is a good candidate for tonsillectomy. Medical attending attestation: Patient seen and examined with a medical student, she is doing much better today on IV antibiotic, following much better she was able to have breakfast today, no fever GENERAL: This is a well-nourished, well-developed patient, in no apparent distress. CARDIOVASCULAR: RRR, no gallops, or rubs. RESPIRATORY: Fair air entry bilaterally. No W, R, or R GASTROINTESTINAL: Abdomen soft, non-tender, nondistended. Positive bowel sounds MUSCULOSKELETAL: Extremities without clubbing, cyanosis, or edema. Pedal pulses appreciated NEUROLOGICAL: Awake and alert. Moves all extremity. Normal speech.no focal neurological deficit Appreciate ENT recommendation, discharged home on p.o. antibiotics clindamycin after finishing 2 days of IV, will discharge patient later today after done with her evening dose, discussed with the patient Discharge patient to home Condition on discharge: Improved Regular Diet as tolerated Ad Elizabeth activity Rx written: Clindamycin, Lactinex Follow-up with primary care physician and ENT in 1 week Huey Veras Feb 08, 2018 10:48 Faustino Madera MD Feb 08, 2018 19:00
[2018-02-08] MEDS: FAMOTIDINE 20 MG/2 ML VIAL IV PUSH SCH (11:38)
[2018-02-08 12:00] VITALS: BP 102/65; PULSE 69; RESP 0; TEMP 98.4; O2SAT 100
[2018-02-08 16:00] VITALS: BP 128/60; PULSE 64; RESP 38; TEMP 98.3; O2SAT 100
[2018-02-09] MEDS ORDERED: FAMOTIDINE 20 MG TAB PO SCH
== END 2018-02-08 19:00 | disposition home or self-care (01) | DRG 153 ==
LOC: HIME 23:00
PROVIDERS: ADMIT Hospitalist; ATTEND Hospitalist
DX: J36 Peritonsillar abscess (principal); I10 Essential (primary) hypertension; Z72.0 Tobacco use; Z82.49 Family history of ischemic heart disease and other diseases of the circulatory system
CPT/HCPCS: 80053; 85025; 87641; J1100; J2270; J3480

== ENCOUNTER 2018-04-19 00:54 | Inpatient (IN) ==
[2018-04-19] MEDS ORDERED: Acetaminophen 325 MG Tablet PO PRN (03:30)
[2018-04-19] MEDS ORDERED: Bisacodyl 10 MG Supp RECTAL PRN (03:30)
--- NOTE | 2018-04-19 03:55 | P.HPIM ---
[facility] of Present Illness [facility]: UNKNOWN Chief Complaint: Sore throat History of Present Illness: Ms. Luong is a 38 year old female with a history of one peritonsillar abscess last year and three peritonsillar abscesses this year since December. This is her third transfer to [facility] [place] [facility] in [place] for ENT evaluation. She didn't complete the Clindamycin given to her on discharge in January and did not follow up with an ENT as an outpatient. Her sore throat is severe with painful swallowing and has been present for 5 days accompanied by fever and chills. - Diagnosis (1) Peritonsillar abscess (2) Leukocytosis (3) Hypokalemia - Inpatient Certification If this patient has been admitted as an Inpatient: I certify that the inpatient services were ordered in accordance with Medicare regulations governing the order. This includes certification that hospital inpatient services are reasonable and necessary and in the case of services not specified as inpatient-only under 42 CFR 419.22(n), that they are appropriately provided as inpatient services in accordance to with the 2-midnight benchmark under 43 CFR 412.3(e) Estimated Total Length of Stay (Days): 3 Plans for Post Hospital Care: Home Review of Systems All other systems reviewed negative except as stated in HPI PMFSH - History History Provided By: Patient - Medical History Medical History: Medical History (Last Updated 04/19/18 @ 03:52 by BILL Conway) Peritonsillar abscess (Acute) History of peritonsillar abscess - Surgical History Surgical History: Surgical History (Last Updated 04/19/18 @ 03:52 by BILL Conway) History of dilatation and curettage - Family History Family History: Family History (Last Updated 04/19/18 @ 03:50 by BILL Conway) Mother Hypertension Diabetes mellitus - Tobacco History Second Hand Smoke Exposure: No Tobacco Use In Past 30 Days: Yes Smoking Status: Current every day smoker Tobacco Type: Cigarettes - Alcohol History How Often Do You Have a Drink Containing Alcohol: Never - Substance Use History Substance History: No History of Abuse Medications and Allergies Active Medications: Active Medications Acetaminophen (Tylenol) 650 mg PO Q4H PRN PRN Reason: Temp > 100.4 Al Hydroxide/Mg Hydroxide (Milk Of Magnesia Liq) 30 ml PO Q12H PRN PRN Reason: Mild Constipation Bisacodyl (Dulcolax Supp) 10 mg RECTAL DAILY PRN PRN Reason: SEVERE CONSITIPATION Dexamethasone Sodium Phosphate (Decadron Inj) 4 mg IV.PUSH Q6HR CRISTIAN Ampicillin Sodium/Sulbactam (Sodium 3 gm/ Sodium Chloride) 100 mls @ 200 mls/ hr IV.SIG Q6H CRISTIAN Lactulose (Lactulose Liq) 30 ml PO DAILY PRN PRN Reason: SEVERE CONSITIPATION Sennosides (Senokot) 17.2 mg PO Q12H PRN PRN Reason: Moderate Constipation Tramadol HCl (Ultram) 50 mg PO Q4H PRN PRN Reason: Pain > 4 Allergies Allergy/AdvReac Type Severity Reaction Status Date / Time No Known Allergies Allergy Unverified 12/22/17 14:14 Exam - Constitutional no acute distress, somnolent - Routine HEENT Exam Head: Present: normocephalic, atraumatic ENT: Present: mucous membranes moist Comments: Large right peritonsillar abscess noted; airway remains patent however. - Routine Neck Exam Present: supple, lymphadenopathy - Routine Respiratory Exam Present: CTA bilaterally. Absent: accessory muscle use, respiratory distress, wheezes, crackles - Routine Cardiovascular Exam Present: RRR, S1, S2. Absent: murmur, gallop, rubs - Routine Abdominal Exam Present: soft, normoactive bowel sounds. Absent: tenderness, distended - Routine Extremities Exam Present: pulses intact. Absent: edema - Routine Skin Exam Present: intact, dry, warm - Routine Neurological Exam Present: alert, oriented X3 Results - Labs Labs: Results reviewed from [facility]: WBC 12.5, hemoglobin 11.9, hematocrit 36.8, platelets 250,000 Sodium 142, potassium 3.3, BUN 14, creatinine 0.24, EGFR greater than 90, and glucose 96 - Imaging CT of neck with IV contrast showed large right peritonsillar abscess with mucosal edema extending cephalad to the nasopharynx; thyromegaly again noted. Caprini VTE Risk Assessment Caprini VTE Risk Assessment: No/Low Risk (score <= 1) Caprini Risk Assessment Model: Point Value = 1 Point Value = 2 Point Value = 3 Point Value = 5 Age 41-60 Minor surgery BMI > 25 kg/m2 Swollen legs Varicose veins or History of unexplained or recurrent spontaneous Oral contraceptives or hormone replacement Sepsis (< 1 month) Serious lung disease, including pneumonia (< 1 month) Abnormal pulmonary function Acute myocardial infarction Congestive heart failure (< 1 month) History of inflammatory bowel disease Medical patient at bed rest Age 61-74 Arthroscopic surgery Major open surgery (> 45 min) Laparoscopic surgery (> 45 min) Malignancy Confined to bed (> 72 hours) Immobilizing plaster cast Central venous access Age >= 75 History of VTE Family history of VTE Factor V Leiden Prothrombin [id number] Lupus anticoagulant Anticardiolipin antibodies Elevated serum homocysteine Heparin-induced thrombocytopenia Other congenital or acquired thrombophilia Stroke (< 1 month) Elective arthroplasty Hip, pelvis, or leg fracture Acute spinal cord injury (< 1 month) Prophylaxis Regimen: Total Risk Factor Score Risk Level Prophylaxis Regimen 0-1 Low Early ambulation 2 Moderate Order ONE of the following: *Sequential Compression Device (SCD) *Heparin 5000 units SQ BID 3-4 Higher Order ONE of the following medications: *Heparin 5000 units SQ TID *Enoxaparin/Lovenox 40 mg SQ daily (WT < 150 kg, CrCl > 30 mL/min) *Enoxaparin/Lovenox 30 mg SQ daily (WT < 150 kg, CrCl > 10-29 mL/min) *Enoxaparin/Lovenox 30 mg SQ BID (WT < 150 kg, CrCl > 30 mL/min) AND/OR *Sequential Compression Device (SCD) 5 or more Highest Order ONE of the following medications: *Heparin 5000 units SQ TID (Preferred with Epidurals) *Enoxaparin/Lovenox 40 mg SQ daily (WT < 150 kg, CrCl > 30 mL/min) *Enoxaparin/Lovenox 30 mg SQ daily (WT < 150 kg, CrCl > 10-29 mL/min) *Enoxaparin/Lovenox 30 mg SQ BID (WT < 150 kg, CrCl > 30 mL/min) AND *Sequential Compression Device (SCD) Assessment and Plan - Assessment (1) Peritonsillar abscess Code(s): J36 - Peritonsillar abscess Status: Acute (2) Leukocytosis Code(s): D72.829 - Elevated white blood cell count, unspecified Status: Acute (3) Hypokalemia Code(s): E87.6 - Hypokalemia Status: Acute - Plan Ms. Luong is a 38 year old female with a history of one peritonsillar abscess last year and three peritonsillar abscesses this year since December. This is her third transfer [place] [facility] [place] [facility] in [place] for ENT evaluation. She didn't complete the Clindamycin given to her on discharge in January and did not follow up with an ENT as an outpatient. Her sore throat is severe with painful swallowing and has been present for 5 days accompanied by fever and chills. Peritonsillar Abscess - CT of neck with IV contrast showed large right peritonsillar abscess with mucosal edema extending cephalad to the nasopharynx; thyromegaly again noted ( will need outpatient f/u for thyromegaly) - consult ENT - appreciate assistance - IV Antibiotics: Unasyn 3 gm IV q6h - Decadron 4 mg IV q6h to reduce inflammation - Ultram 50 mg p.o. q4h PRN pain - NPO Leukocytosis - WBC 12.5 at [place] - will recheck and follow results Hypokalemia - Potassium 3.3. at [place] - NS with 20 meq of K+ at 100 cc/hr - will recheck BMP in a.m. and provide additional supplementation if needed DVT prophylaxis - early ambulation H&P: Quality - VTE Deep Vein Thrombosis/Pulmonary Embolism Present on Admission: No
[2018-04-19] MEDS: Ampicillin/Sulbactam Inj 3 GM in Sodium Chloride 0.9% Inj 100 ML IV.SIG SCH ×2 (04:58→09:19)
--- NOTE | 2018-04-19 12:44 | P.PN ---
Subjective Interval history: Nursing denies any deterioration since last night. Patient herself has no new complaints. Says she is willing to follow-up with ENT outpatient and be compliant as instructed. Physical Exam Vital signs: Vital Signs 04/19/18 05:17 04/19/18 08:17 04/19/18 11:38 Temperature 97.1 F L 97.5 F L Pulse Rate 73 70 Respiratory Rate 18 19 18 Blood Pressure 126/59 L 140/62 Pulse Oximetry 98 97 Intake & Output 04/18/18 04/19/18 04/19/18 18:59 06:59 18:59 Intake Total 100 / 100 Output Total 0 / 0 Balance 100 / 100 Weight 79 kg Intake: IV 100 / 100 Unasyn Inj 3 GM In NS Inj 100 100 / 100 ML @ 200 mls/hr IV.SIG Q6H CRISTIAN Rx#:[id number] Output: Urine 0 / 0 Other: # Voids 1 Weight On Admission 79 kg Narrative: Uvula appears to be in midline, no erythema noted, no trismus noted Assessment and Plan - Plan Peritonsillar abscess, clinically has improved since yesterday. Will need to finish antibiotic course outpatient and follow-up with ENT for possible tonsillectomy. Trial of clear liquids, if she passes she can be discharged home. Progress Note: Quality - VTE Deep Vein Thrombosis/Pulmonary Embolism Present on Admission: No
== END 2018-04-19 14:21 | disposition home or self-care (01) ==
LOC: UNDODISIN → N07 02:55
PROVIDERS: ADMIT Hospitalist; ATTEND Hospitalist
CPT/HCPCS: J0295; J1100; J3480